=== PATIENT | female | born 1995 ===

== ENCOUNTER 2023-01-15 00:28 | Inpatient (IN) | payer BC, OTHER, MEDICAID ==
[~2023-01-15] VITALS: Ht 167.6 cm; Wt 71.8 kg
[2023-01-15] MEDS ORDERED: LIDOCAINE 1% MDV 20ML VIAL INFIL PRN (01:45)
[2023-01-15] MEDS ORDERED: OXYTOCIN DRIP 30 UNITS in IV 1 EA IV PRN (01:45)
[2023-01-15 02:37] LABS: HEMATOCRIT 32.3 % (36.0-47.0); HEMOGLOBIN 10.1 g/dl (12.0-15.5); MEAN CORPUSCULAR HEMOGLOBIN 25.2 pg (27.0-33.0); MEAN CORPUSCULAR HGB CONC 31.3 g/dl (32.0-36.5); MEAN CORPUSCULAR VOLUME 80.5 fl (80.0-96.0); PLATELET COUNT, AUTOMATED 292 10^3/uL (150-450); RED BLOOD COUNT 4.01 10^6/uL (4.00-5.40); WHITE BLOOD COUNT 11.9 10^3/uL (4.0-10.0)
[2023-01-15 02:55] LABS: TOTAL PROTEIN,RANDOM URINE 10.1 MG/DL (0.0-14.0)
[2023-01-15] MEDS ORDERED: LR 1,000 ML IV ONE (03:00)
[2023-01-15] MEDS ORDERED: DIBUCAINE 1% OINTMENT 30GM TOP PRN (03:25)
[2023-01-15] MEDS ORDERED: METHYLERGONOVINE MALEATE 0.2 MG TAB PO PRN (03:25)
[2023-01-15] MEDS ORDERED: DOCUSATE SODIUM 100MG CAPSULE PO PRN (03:25)
[2023-01-15] MEDS ORDERED: ACETAMINOPHEN TAB 650MG DOSE (2X325MG) PO PRN (03:25)
[2023-01-15] MEDS ORDERED: ACETAMINOPHEN 500 MG TAB PO PRN (03:25)
[2023-01-15] MEDS ORDERED: IBUPROFEN 600MG TAB PO PRN (03:25)
[2023-01-15] MEDS ORDERED: IBUPROFEN 800 MG TAB PO PRN (03:25)
[2023-01-15 03:27] VITALS: BP 138/66
[2023-01-15 06:20] VITALS: BP 123/67; O2SAT 99
[2023-01-15] MEDS: PRENATAL VITAMINS CHEWABLE TABLET PO SCH (08:28)
[2023-01-15 18:00] VITALS: BP 128/74; O2SAT 98
[2023-01-16 06:00] VITALS: BP 106/58; O2SAT 99
[2023-01-16 07:03] LABS: HEMATOCRIT 32.2 % (36.0-47.0); MEAN CORPUSCULAR HEMOGLOBIN 25.3 pg (27.0-33.0); MEAN CORPUSCULAR HGB CONC 31.1 g/dl (32.0-36.5); MEAN CORPUSCULAR VOLUME 81.3 fl (80.0-96.0); PLATELET COUNT, AUTOMATED 248 10^3/uL (150-450); RED BLOOD COUNT 3.96 10^6/uL (4.00-5.40); WHITE BLOOD COUNT 12.1 10^3/uL (4.0-10.0)
[2023-01-16] MEDS: PRENATAL VITAMINS CHEWABLE TABLET PO SCH (07:49)
[2023-01-16] MEDS ORDERED: CALCIUM CARBONATE 500 MG CHEW U/D PO PRN (08:35)
[2023-01-16] MEDS ORDERED: PRENCHW PO (09:58)
[2023-01-16] MEDS ORDERED: CALC200T15 PO (09:58)
[2023-01-16] MEDS ORDERED: ACET1TAB55 PO (09:58)
[2023-01-16] MEDS ORDERED: IBUP-1022 PO (09:58)
[2023-01-16 10:00] VITALS: BP 113/57; O2SAT 98
== END 2023-01-16 10:55 | disposition home or self-care (01) | DRG 560 ==
LOC: M LDO 00:28 → M LDI 01:47 → M OBS 04:46
PROVIDERS: ADMIT Obstetrics & Gynecology Obstetrics; ATTEND Obstetrics & Gynecology Obstetrics
PROC: 10E0XZZ Delivery of Products of Conception, External Approach (ICD-10-PCS; principal; 2023-01-15)
DX: O48.0 Post-term pregnancy (principal); Z37.0 Single live birth; Z3A.40 40 weeks gestation of pregnancy